=== PATIENT | female | born 1965 | race African-American/Black ===

== ENCOUNTER 2016-09-26 17:26 | Emergency (ER) | payer OTHER ==
[~2016-09-26] VITALS: Ht 162.6 cm; Wt 81.6 kg
[2016-09-26 18:07] VITALS: BP 169/113
[2016-09-26] MEDS ORDERED: Lidocaine 1% MPF 10mg/ml 5ml INJ ONE ×2 (18:30→19:00)
[2016-09-26] MEDS ORDERED: Bacitracin Oint UD TOPIC ONE (18:30)
[2016-09-26] MEDS ORDERED: BACITRACIN15 GM TOPIC (18:52)
[2016-09-26] MEDS ORDERED: IBUPROFEN600 MG ORAL (18:52)
[2016-09-26 19:06] VITALS: BP 169/113
--- NOTE | 2016-09-26 21:16 | Emergency Room Report ---
History of Present Illness General Chief Complaint: Laceration Source: Patient Present Illness [facility] The patient is a 51-year-old female presenting with left hand laceration. She states that she was using a knife in the kitchen when it slipped. This occurred prior to arrival. Pain is a 4-10 dull ache and does not radiate from the laceration site. Worse with touch. She denies any numbness or tingling. She denies any difficulty moving her fingers. Last tetanus shot was within 10 years. She denies any other symptoms Allergies: Coded Allergies: No Known Allergies (Unverified , 09/26/16) Patient History Past Medical History: see triage record Pertinent Family History: none Last Menstrual Period: unk Now: No Reviewed Nursing Documentation: PMH: Agreed, PSxH: Agreed Nursing Documentation-PMH Hx Hypertension: Yes Review of Systems All Other Systems: negative except mentioned in HPI Physical Exam Vital Signs Date Time Temp Pulse Resp B/P Pulse Ox O2 Delivery O2 Flow Rate FiO2 09/26/16 17:45 98.2 69 14 169/113 97 Room Air Sp02 EP Interpretation: reviewed, normal General Appearance: no apparent distress, alert, GCS 15, non-toxic Head: normocephalic, atraumatic Eyes: bilateral eye PERRL, bilateral eye normal inspection ENT: hearing grossly normal, normal pharynx, no angioedema, normal voice Neck: full range of motion, supple/symm/no masses Musculoskeletal: tender - TTP over the L hand ventral surface between thumb and index Neurologic: alert, oriented x3, responsive, motor strength/tone normal, sensory intact, speech normal Psychiatric: judgement/insight normal, memory normal, mood/affect normal, no suicidal/homicidal ideation Skin: laceration - 2cm linear laceration to the L hand: ventral surface proximal to 1st webspace Lymphatic: no adenopathy Procedures Laceration/Wound Repair Laceration/Wound Repair : Consent: Verbal Wound Location: upper extremity Wound's Depth, Shape: superficial, linear Wound Length (cm): 2 Wound Explored: clean Irrigated w/ Saline (ccs): 100 Betadine Prep?: Yes Anesthesia: 1% Lidocaine Volume Anesthetic (ccs): 3 Wound Debrided: minimal Wound Repaired With: sutures Suture Size/Type: proline Number of Sutures: 3 Layer Closure?: No Sterile Dressing Applied?: Yes Splint Applied?: Yes Sling Applied?: No Patient Tolerated: Well Complications: None Medical Decision Making PA Attestation Dr. De La Garza is my supervising physician. Patient management was discussed with my supervising physician Diagnostic Impression: Primary Impression: Laceration ER Course The patient is a 51-year-old female presenting with left hand laceration Ddx considered include but not limited to fracture, tendon/ligament injury, avulsion, nerve damage Physical exam: Consistent with simple laceration of the left hand. Full active range of motion of all digits. Sensation is intact. The wound was irrigated with normal saline and cleaned with betadine. A 27g needle was used to administer 3mL of lidocaine w.o epi for local anasthesia. 3 sutures were placed with 5-0 proline The wound was well approximated and the patient tolerated the procedure well. The wound was then cleaned and bacitracin was applied. She is discharged with the ER precautions. Suture instructions given Last Vital Signs Date Time Temp Pulse Resp B/P Pulse Ox O2 Delivery O2 Flow Rate FiO2 09/26/16 19:06 98.2 14 169/113 97 Room Air 09/26/16 17:45 69 Status: improved Disposition: HOME, SELF-CARE Condition: Improved Scripts Ibuprofen* (MOTRIN*) 600 Mg Tablet 600 MG ORAL Q8H Y for For Pain, #30 TAB 0 Refills Prov: ENRIUQE FISHER 09/26/16 Bacitracin (Bacitracin) 28.4 Gm Oint...g. 1 APPLIC TOPIC THREE TIMES A DAY, #28 GM Prov: ENRIQUE FISHER 09/26/16 Referrals: NON PHYSICIAN Patient Instructions: Laceration Care, Adult Additional Instructions: I discussed my findings with the patient. All questions and concerns have been answered. Treatment and medication compliance have been addressed. I advised the patient that they need to follow up with PMD in 5-7 days for wound check and suture removal. If you are unable to see PMD, return to the ED in 5-7 days. Return to ED if pain remains or worsens, you notice discharge from the wound, the wound continues to bleed, the suture/s fall out, you notice a fever or chills, or for any reason. Patient is advised to keep the wound clean and apply an antibacterial ointment. Patient verbalized understanding of discharge instructions. ENRIQUE FISHER Sep 26, 2016 21:16
== END 2016-09-26 19:07 | disposition home or self-care (01) ==
LOC: EMR 17:59
DX: S61.412A Laceration without foreign body of left hand, initial encounter (principal); I10 Essential (primary) hypertension; W26.0XXA Contact with knife, initial encounter; Y93.9 Activity, unspecified; Y92.9 Unspecified place or not applicable